=== PATIENT | female | born 1975 | race Caucasian/White ===

== ENCOUNTER 2017-07-30 18:17 | Emergency (ER) | payer OTHER ==
[~2017-07-30] VITALS: Ht 147.3 cm; Wt 85.3 kg
[~2017-07-30 18:17] MED LIST: ASCO500 PO; ASPI81CH PO; ASPI81EC PO; CARV3.125; CARV6.25 PO; CEREFOLIN PO; CHLO25B PO; CHOL10002 PO; CYAN1000 PO; DICL75ER PO; DOCU100 PO; FISH1000 PO; FLUC150A PO; FLUSAL1005 INH; FLUT.05NI; FLUT110OIA INH; FURO40 PO; HYDR1TAB94 PO; ISOMON30; Iron Supplemen325 MG; LEVSOD100 PO; LEVSOD50 PO; LISI10 PO; LISI5 PO; LOSA25 PO; MAGNESIUM PO; MAGOXI400; MAGOXI400 PO; MECL25 PO; METF500 PO; METF500C PO; METO5A PO; MULVIT PO; NIAC500 PO; OMEG1CAP30; OMEG1CAP30 MT; OMEP40CA12 PO; ONDA8 PO; OXYACE5T PO; POTA10T PO; POTASSIUM GLUC500 MG PO; PROG100 PO; PROM25 PO; RANO500T PO; Ranexa1000 MG; Sudogest30 MG PO; TICA90TA; TICA90TA PO; XARELTO15 MG PO; XARELTO20 MG PO; [UNRECOGNIZED DRUG - OTHER]
== END 2017-07-30 20:17 | disposition home or self-care (01) ==
LOC: ER 18:17
DX: M79.622 Pain in left upper arm (principal); E11.9 Type 2 diabetes mellitus without complications; E03.9 Hypothyroidism, unspecified; I25.2 Old myocardial infarction; Z88.8 Allergy status to other drugs, medicaments and biological substances; Z79.899 Other long term (current) drug therapy; Z79.82 Long term (current) use of aspirin
CPT/HCPCS: 93971; 99284

== ENCOUNTER → 2023-08-31 | Outpatient (CLI) | payer OTHER ==
[~2023-08-31] MED LIST changes: +OXYC5 PO
[2023-08-31 14:09] LABS: Source, Urine Clean Catch
[2023-08-31 18:26] LABS: Appearance, Urine Clear (Clear); Bilirubin, Urine Neg (Neg); Blood, Urine Neg (Neg); Color, Urine Yellow (P-Yellow); Glucose Qualitative, Urine 4+ (Neg); Ketones, Urine Neg (Neg); Leukocyte Esterase, Urine Neg (Neg); Nitrite, Urine Neg (Neg); Protein, Urine Neg (Neg); Specific Gravity, Urine 1.015 (1.003-1.022); Urobilinogen, Urine NORM (Normal)
== END ==
LOC: LAB SHORT 14:08 → LAB 14:08
PROVIDERS: Family Medicine
DX: R35.0 Frequency of micturition (principal)
CPT/HCPCS: 81003

== ENCOUNTER → 2023-09-09 | Outpatient (CLI) | payer OTHER ==
[2023-09-10 11:58] LABS: Stool Occult Bld Immuno 1 Negative (NEGATIVE)
== END | disposition home or self-care (01) ==
LOC: LAB 09:45 → LAB SHORT 09:45
PROVIDERS: Family Medicine
DX: Z12.11 Encounter for screening for malignant neoplasm of colon (principal)
CPT/HCPCS: G0328